=== PATIENT | male | born 1990 | race Caucasian/White ===

== ENCOUNTER → 2023-11-20 07:40 | Outpatient (CLI) | payer SELFPAY ==
--- NOTE | ~2023-11-20 | US_ITS ---
Limited Abdominal Sonogram: Real-time sonographic imaging of the left abdomen was performed. Clinical History: Left quadrant abdominal mass Findings: No distinct abnormal mass lesion or fluid collection seen. No hernia evident. Impression: No distinct abnormality seen at the area scanned the left abdomen. Consider CT or MR to further evalu ate for mass or hernia, as indicated. Reviewed, dictated and finalized at [facility]. TEAM LEAD Impression: No distinct abnormality seen at the area scanned the left abdomen. Consider CT or MR to further evaluate for mass or hernia, as indicated.
== END ==
PROVIDERS: PCP Family Medicine; Visit Provider Family Medicine
DX: R19.04 Left lower quadrant abdominal swelling, mass and lump (principal)
CPT/HCPCS: 76705